=== PATIENT | female | born 1985 | race Caucasian/White ===

== ENCOUNTER 2017-11-21 05:51 | Day surgery (SDC) | payer OTHER ==
[2017-11-20 13:39] VITALS: BMI 28.5
[2017-11-21 06:46] LABS: #Eosinphils 0.1 thou/uL (0.0-0.7); #Lymphocytes 2.6 thou/uL (1.20-3.40); #Monocytes 0.4 thou/uL (0.11-0.59); %Basophils 0.5 % (0.0-1.0); %Eosinophils 1.4 % (0.0-10.0); %Lymphocytes 36.4 % (21.0-51.0); %Neutrophils 55.7 % (42.0-75.0); Hemoglobin 13.2 g/dL (12.0-16.0); Mean Corpuscular HGB CONC 33.9 g/dL (32.0-36.0); Mean Corpuscular Hemoglobin 31.3 pg (27.0-31.0); Mean Corpuscular Volume 92.1 fL (78.0-98.0); Mean Platelet Volume 6.8 fL (7.4-10.4); Platelet Count 340 thou/uL (130-400); RBC Distribution Width 11.2 % (11.5-14.5); Red Blood Cell (RBC) Count 4.23 mill/uL (4.20-5.40); White Blood Cell (WBC) Count 7.3 thou/uL (4.8-10.8)
[2017-11-21] MEDS ORDERED: Meperidine HCl/PF 25 MG/ML VIAL ONE (06:46)
[2017-11-21] MEDS ORDERED: Fentanyl 100 MCG/2 ML VIAL ONE (06:46)
[2017-11-21] MEDS ORDERED: Bupivacaine/Epinephrine 0.25% 30 ML VIAL ONE (06:47)
[2017-11-21] MEDS ORDERED: Bacitracin Zinc Ointment 30 gm TUBE ONE (06:47)
[2017-11-21 06:52] LABS: BHCG - Serum Negative (NEGATIVE); Pregs Control Background? CLEAR/WHITE (CLR/WHITE); Pregs Control Bar Appear? YES (CONTROL BAR)
[2017-11-21 07:07] LABS: Anion Gap 11 mmol/L (10-20); BUN (Urea Nitrogen) 12 mg/dL (7.0-18.7); Calc. Creatinine Clearance 131 mL/min (70-130); Calcium 9.5 mg/dL (7.8-10.44); Carbon Dioxide 27 mmol/L (22-29); Chloride 106 mmol/L (98-107); Estimated GFR-MDRD Greater than 90; Glucose 84 mg/dL (70-105); Potassium 3.8 mmol/L (3.5-5.1); Sodium 140 mmol/L (136-145)
[2017-11-21] MEDS ORDERED: Famotidine/PF 20 mg/2ml Vial ONE (07:34)
[2017-11-21] MEDS ORDERED: Midazolam HCl 2 mg/2 ml Vial ONE (07:34)
[2017-11-21] MEDS ORDERED: CEFAZOLIN/Water 2 GM/20 ML SYRINGE ONE (07:34)
[2017-11-21] MEDS ORDERED: Ketorolac Tromethamine 30 MG/ML VIAL ONE (07:34)
[2017-11-21] MEDS ORDERED: HYDROcodone/Acetaminophen 5/325 mg Tablet ONE (10:59)
[2017-11-21] MEDS ORDERED: Glycopyrrolate 0.2 MG/ML 5 ML SYRINGE ONE (12:17)
[2017-11-21] MEDS ORDERED: Dexamethasone 20 MG/5 ML VIAL ONE (12:17)
[2017-11-21] MEDS ORDERED: Ondansetron HCl/PF 4 MG/2 ML Vial ONE (12:17)
[2017-11-21] MEDS ORDERED: PROPOFOL 200 MG/20 ML VIAL ONE (12:17)
[2017-11-21] MEDS ORDERED: Lidocaine 1% PF 5 ML VIAL ONE (12:17)
--- NOTE | 2017-11-28 18:49 | PDOC.OP ---
Operative Note - Operative Note Operative Note: PROCEDURE: Pilonidal cyst excision with layered closure DATE OF PROCEDURE: 11/21/2017 SURGEON: Zohaib Flores M.D. PREOPERATIVE DIAGNOSES: Pilonidal cyst POSTOPERATIVE DIAGNOSIS: Pilonidal cyst HISTORY: Patient with intermittently symptomatic pilonidal cyst for many years. Excision was recommended. PROCEDURE IN DETAIL: After informed consent was obtained and appropriate preoperative antibiotics were administered the patient was taken to the operating room where she was placed in supine position and general endotracheal anesthesia was administered. She was then moved to the prone jackknife position with appropriate support and padding of her extremities. She was prepped and draped in the standard sterile fashion and local anesthesia infused circumferentially. An Angiocath was placed into the pilonidal sinus and methylene blue injected and confirmed to communicate with the drainage site in the upper gluteal cleft. An elliptical incision was made and the entire cyst and sinus excised. The subcutaneous tissues were elevated off the underlying gluteal muscle and brought together with interrupted [id number] 3-0 Monocryl sutures. The deep dermal sutures were reapproximated with interrupted [id number] 3-0 Monocryl sutures as well. The skin was closed with vertical mattress nylon sutures. Additional local anesthesia was infused circumferentially for postoperative pain control. Bacitracin gauze and Tegaderm dressings were placed. The patient was placed back in the supine position and extubated. She was taken to the recovery room in good condition. Estimated blood loss was minimal. There were no complications. Specimen is pilonidal cyst.
== END 2017-11-21 13:23 ==
LOC: SDC 05:51
PROVIDERS: ATTEND Surgery
PROC: 0JB90ZZ Excision of Buttock Subcutaneous Tissue and Fascia, Open Approach (ICD-10-PCS; principal; 2017-11-21)
DX: L05.91 Pilonidal cyst without abscess (principal)
CPT/HCPCS: 36415; 80048; 84703; 85025; 88304; J0131; J1100; J1885; J2001; J2175; J2250; J2405; J2704; J3010; Q9968; S0028